=== PATIENT | female | born 1955 | race Caucasian/White ===

== ENCOUNTER 2016-06-05 09:00 | Outpatient (CLI) | payer BC ==
[2016-06-05 09:51] LABS: eGFR (African) > 60; eGFR (Non-African) > 60
== END 2016-06-05 09:02 ==
LOC: LAB 09:00
PROVIDERS: ATTEND Family Medicine
DX: Z00.00 Encounter for general adult medical examination without abnormal findings (principal); E03.9 Hypothyroidism, unspecified
CPT/HCPCS: 36415; 80053; 80061; 84443